=== PATIENT | male | born 1930 | race Caucasian/White ===

== ENCOUNTER 2020-02-22 20:40 | Observation (INO) ==
[2020-02-22] MEDS ORDERED: Acetaminophen 325 MG TABLET PO PRN (22:40)
[2020-02-22] MEDS ORDERED: Naloxone 0.4 MG/ML INJ IVP PRN (22:40)
[2020-02-22] MEDS ORDERED: Ondansetron ODT 4 MG TAB.RAPDIS SL PRN (22:40)
[2020-02-22 23:33] LABS: Albumin 3.6 g/dL (3.5-5.7); Albumin/Globulin Ratio 1.4 (1.1-2.2); Bilirubin,Total 0.5 mg/dL (0.3-1.0); Calcium 8.6 mg/dL (8.6-10.3); Globulin 2.6 g/dL (2.4-3.5); Potassium 3.8 mEq/L (3.5-5.1); Total Protein 6.2 g/dL (6.4-8.9)
[2020-02-23 05:21] LABS: Basophils % 0.4 %; Eosinophils % 0.2 %; Hematocrit 36.2 % (37.5-50.1); Hemoglobin 11.7 g/dL (12.9-16.9); Immature Granulocytes % 0.6 % (0-4); Lymphocytes # 0.6 K/mcL (0.6-4.6); Lymphocytes % 10.8 %; Mean Corpuscular HGB Conc 32.3 g/dL (31.6-35.5); Mean Corpuscular Hemoglobin 29.6 pg (28.0-33.3); Mean Corpuscular Volume 91.6 fL (83.0-100.0); Mean Platelet Volume 9.4 fL (9.4-12.4); Monocytes # 1.2 K/mcL (0.0-1.3); Monocytes % 23.1 %; Neutrophils # 3.4 K/mcL (1.6-8.9); Platelet Count 207 K/mcL (140-400); Red Blood Count 3.95 M/mcL (4.19-5.50); Red Cell Distribution Width 13.6 % (11.5-14.5); Segmented Neutrophils % 64.9 %; White Blood Count 5.3 K/mcL (4.3-11.1)
[2020-02-23 05:39] LABS: BUN/Creatinine Ratio 15 (6-26); Blood Urea Nitrogen 19 mg/dL (8-23); Calcium 8.5 mg/dL (8.6-10.3); Carbon Dioxide 22 mEq/L (23-29); Chloride 104 mEq/L (98-107); Glucose 88 mg/dL (70-105); Magnesium 1.9 mg/dL (1.6-2.6); Osmolality,Calculated 288 (280-300); Phosphorous 2.8 mg/dL (2.7-4.5); Potassium 3.7 mEq/L (3.5-5.1); Sodium 138 mEq/L (136-145); eGFR For African Americans > 60 (> 60); eGFR For Non-African Americans 53 (> 60)
[2020-02-23] MEDS: *HR* Heparin 5,000 UNIT/ML VIAL SQ SCH ×3 (05:58→21:36)
[2020-02-23 06:08] LABS: Platelet Estimate Normal (Normal)
[2020-02-23] MEDS ORDERED: Azithromycin 500 MG in 0.9 % Sodium Chloride 250 ML IVPB SCH (09:00)
[2020-02-23] MEDS ORDERED: cefTRIAXone 1,000 MG in 0.9 % Sodium Chloride Mini Bag 100 ML IVPB SCH (09:00)
[2020-02-23] MEDS: carvediloL 25 MG TABLET PO SCH ×2 (09:45→16:13)
[2020-02-23] MEDS: amLODIPine 5 MG TABLET PO SCH (09:45)
[2020-02-23] MEDS: cilostazoL 100 MG TABLET PO SCH (20:13)
[2020-02-24] MEDS ORDERED: *HR* Enoxaparin 40 MG/0.4 ML SYRINGE SQ SCH (06:00)
[2020-02-24 07:27] VITALS: BP 135/72
[2020-02-24] MEDS: carvediloL 25 MG TABLET PO SCH (07:47)
[2020-02-24] MEDS: amLODIPine 5 MG TABLET PO SCH (07:47)
[2020-02-24] MEDS: cilostazoL 100 MG TABLET PO SCH (07:47)
[2020-02-24 15:35] LABS: Hematocrit 34.9 % (37.5-50.1); Hemoglobin 11.4 g/dL (12.9-16.9); Mean Corpuscular HGB Conc 32.7 g/dL (31.6-35.5); Mean Corpuscular Hemoglobin 29.7 pg (28.0-33.3); Mean Corpuscular Volume 90.9 fL (83.0-100.0); Mean Platelet Volume 9.6 fL (9.4-12.4); Platelet Count 198 K/mcL (140-400); Red Blood Count 3.84 M/mcL (4.19-5.50); Red Cell Distribution Width 13.6 % (11.5-14.5); White Blood Count 4.4 K/mcL (4.3-11.1)
[2020-02-24 15:51] LABS: BUN/Creatinine Ratio 20 (6-26); Blood Urea Nitrogen 23 mg/dL (8-23); Calcium 7.9 mg/dL (8.6-10.3); Carbon Dioxide 25 mEq/L (23-29); Chloride 104 mEq/L (98-107); Glucose 154 mg/dL (70-105); Osmolality,Calculated 289 (280-300); Potassium 3.4 mEq/L (3.5-5.1); Sodium 136 mEq/L (136-145); eGFR For African Americans > 60 (> 60); eGFR For Non-African Americans > 60 (> 60)
== END 2020-02-24 18:00 | disposition home health service (06) ==
LOC: 2NENU
PROVIDERS: ADMIT Student in an Organized Health Care Education/Training Program; ATTEND Student in an Organized Health Care Education/Training Program